=== PATIENT | male | born 1930 | race Caucasian/White ===

== ENCOUNTER 2017-05-04 05:50 | Day surgery (SDC) | payer MEDICARE, OTHER ==
--- NOTE | ~2017-05-04 | EGD ---
EGD REPORT [facility] [address] [id number] NAME: GUTIERREZ BASURTO : [birth year] STATUS : REG [facility]#: [id number] AGE: 86 ADM/REG DATE : 05/04/17 MR#: [id number] REPORT SERV DATE: 05/04/17 DICTATED BY: ESTIVEN BELLAMY DATE: 05/04/17 REPORT STATUS : Draft TRANSCRIBED BY: [employer] DATE: 05/04/17 [facility] Center Patient Name: Gutierrez Basurto Date of : 1930 Attending MD: ESTIVEN BELLAMY MD Procedure Date No Time: 05/04/2017 Procedure: Upper GI endoscopy Indications: Iron deficiency anemia Referring MD: Chang Gibson Medicines: Propofol per Anesthesia Complications: No immediate complications. Procedure: Pre-Anesthesia Assessment: - ASA Grade Assessment: II - A patient with mild systemic disease. After obtaining informed consent, the endoscope was passed under direct vision. Throughout the procedure, the patient's blood pressure, pulse, and oxygen saturations were monitored continuously. The GIF H190 [id number] was introduced through the mouth, and advanced to the second part of duodenum. The upper GI endoscopy was accomplished without difficulty. The patient tolerated the procedure well. Findings: A small hiatus hernia was present. Diffuse moderate inflammation characterized by erosions, erythema and friability was found in the stomach. The examined duodenum was normal. Impression: - Hiatus hernia. - Chronic gastritis. - Normal examined duodenum. Recommendation: - Patient has a contact number available for emergencies. The signs and symptoms of potential delayed complications were discussed with the patient. Return to normal activities tomorrow. Written discharge instructions were provided to the patient. - Regular diet. - Patient has a contact number available for emergencies. The signs and symptoms of potential delayed complications were discussed with the patient. Return to normal activities tomorrow. Written discharge instructions were provided to the patient. - Continue present medications. EGD REPORT [address] [address] NAME: GUTIERREZ BASURTO : [birth year] STATUS : REG [facility]#: [id number] AGE: 86 ADM/REG DATE : 05/04/17 MR#: [id number] REPORT SERV DATE: 05/04/17 DICTATED BY: ESTIVEN BELLAMY. DATE: 05/04/17 REPORT STATUS : Draft TRANSCRIBED BY: [employer] DATE: 05/04/17 Procedure Code(s): --- Professional --- 91177, Esophagogastroduodenoscopy, flexible, transoral; diagnostic, including collection of specimen(s) by brushing or washing, when performed (separate procedure) Diagnosis Code(s): --- Professional --- K44.9, Diaphragmatic hernia without obstruction or gangrene K29.50, Unspecified chronic gastritis without bleeding D50.9, Iron deficiency anemia, unspecified CPT copyright 2013 [employer]. All rights reserved. The codes documented in this report are preliminary and upon poultry buyer review may be revised to meet current compliance requirements. Estiven Bellamy MD ESTIVEN BELLAMY MD 05/04/2017 7:38 AM This report has been signed electronically. Number of Addenda: 0 Note Initiated On: 05/04/2017 7:28 AM Scope Withdrawal Time 0 hours 0 minutes [address] [place] [id number]
--- NOTE | ~2017-05-04 | EGD ---
EGD REPORT [facility] [address] [id number] NAME: GUTIERREZ BASURTO : [birth year] STATUS : REG [facility]#: [id number] AGE: 86 ADM/REG DATE : 05/04/17 MR#: [id number] REPORT SERV DATE: 05/04/17 DICTATED BY: ESTIVEN BELLAMY DATE: 05/04/17 REPORT STATUS : Draft TRANSCRIBED BY: [employer] DATE: 05/04/17 [facility] Patient Name: Gutierrez Basurto Date of : 1930 Attending MD: ESTIVEN BELLAMY MD Procedure Date No Time: 05/04/2017 Procedure: Colonoscopy Indications: Iron deficiency anemia Referring MD: Chang Gibson Medicines: Propofol per Anesthesia Complications: No immediate complications. Procedure: Pre-Anesthesia Assessment: - ASA Grade Assessment: II - A patient with mild systemic disease. - Prior to the procedure, a History and Physical was performed, and patient medications and allergies were reviewed. The patient's tolerance of previous anesthesia was also reviewed. The risks and benefits of the procedure and the sedation options and risks were discussed with the patient. All questions were answered, and informed consent was obtained. Prior Anticoagulants: The patient has taken no previous anticoagulant or antiplatelet agents. ASA Grade Assessment: III - A patient with severe systemic disease. After reviewing the risks and benefits, the patient was deemed in satisfactory condition to undergo the procedure. After I obtained informed consent, the scope was passed under direct vision. Throughout the procedure, the patient's blood pressure, pulse, and oxygen saturations were monitored continuously. The PCF H190L [id number] was introduced through the anus and advanced to the cecum, identified by appendiceal orifice and ileocecal valve. The colonoscopy was performed without difficulty. The patient tolerated the procedure well. The quality of the bowel preparation was good. The ileocecal valve, appendiceal orifice, terminal ileum and rectum were photographed. The entire colon was examined. The colonoscopy was performed without difficulty. The patient tolerated the procedure well. The quality of the bowel preparation was good. Findings: A few medium-mouthed diverticula were found in the sigmoid colon and in the descending colon. A sessile polyp was found in the rectum. The polyp was 5 mm in size. The EGD REPORT [address] [address] NAME: GUTIERREZ BASURTO : 30 STATUS : REG [facility] PAT#: [id number] AGE: 86 ADM/REG DATE : 05/04/17 MR#: [id number] REPORT SERV DATE: 05/04/17 DICTATED BY: ESTIVEN BELLAMY DATE: 05/04/17 REPORT STATUS : Draft TRANSCRIBED BY: [employer] DATE: 05/04/17 polyp was removed with a hot snare. Resection and retrieval were complete. Internal hemorrhoids were found during retroflexion and were Grade I (internal hemorrhoids that do not prolapse). The rest of the colon was normal. Impression: - Diverticulosis in the sigmoid colon and in the descending colon. - One 5 mm polyp in the rectum. Resected and retrieved. - Internal hemorrhoids. Recommendation: - Patient has a contact number available for emergencies. The signs and symptoms of potential delayed complications were discussed with the patient. Return to normal activities tomorrow. Written discharge instructions were provided to the patient. - Regular diet. - Patient has a contact number available for emergencies. The signs and symptoms of potential delayed complications were discussed with the patient. Return to normal activities tomorrow. Written discharge instructions were provided to the patient. - Continue present medications. Procedure Code(s): --- Professional --- 08776, Colonoscopy, flexible, proximal to splenic flexure; with removal of tumor(s), polyp(s), or other lesion(s) by snare technique Diagnosis Code(s): --- Professional --- K64.0, First degree hemorrhoids K57.30, Diverticulosis of large intestine without perforation or abscess without bleeding K62.1, Rectal polyp D50.9, Iron deficiency anemia, unspecified CPT copyright 2013 [employer]. All rights reserved. The codes documented in this report are preliminary and upon fruit dumper review may be revised to meet current compliance requirements. Estiven Bellamy MD ESTIVEN BELLAMY MD 05/04/2017 7:57 AM This report has been signed electronically. EGD REPORT [facility] [address] [id number] NAME: GUTIERREZ BASURTO : 30 STATUS : REG [facility] PAT#: [id number] AGE: 86 ADM/REG DATE : 05/04/17 MR#: [id number] REPORT SERV DATE: 05/04/17 DICTATED BY: ESTIVEN BELLAMY. DATE: 05/04/17 REPORT STATUS : Draft TRANSCRIBED BY: [employer] DATE: 05/04/17 Number of Addenda: 0 Note Initiated On: 05/04/2017 7:32 AM Scope Withdrawal Time 0 hours 10 minutes 13 seconds [address] [id number]
--- NOTE | ~2017-05-04 | EGD ---
EGD REPORT [facility] [address] [id number] NAME: GUTIERREZ BASURTO : [birth year] STATUS : REG [facility]#: [id number] AGE: 86 ADM/REG DATE : 05/04/17 MR#: [id number] REPORT SERV DATE: 05/04/17 DICTATED BY: ESTIVEN BELLAMY DATE: 05/04/17 REPORT STATUS : Draft TRANSCRIBED BY: [employer] DATE: 05/04/17 Endoscopy Center Patient Name: Gutierrez Basurto Date of : 1930 Attending MD: ESTIVEN BELLAMY MD Procedure Date No Time: 05/04/2017 Procedure: Upper GI endoscopy Indications: Iron deficiency anemia Referring MD: Chang Gibson Medicines: Propofol per Anesthesia Complications: No immediate complications. Procedure: Pre-Anesthesia Assessment: - ASA Grade Assessment: II - A patient with mild systemic disease. - ASA Grade Assessment: [ASA Grade]. After obtaining informed consent, the endoscope was passed under direct vision. Throughout the procedure, the patient's blood pressure, pulse, and oxygen saturations were monitored continuously. The GIF H190 [id number] was introduced through the mouth, and advanced to the second part of duodenum. The upper GI endoscopy was accomplished without difficulty. The patient tolerated the procedure well. Findings: A small hiatus hernia was present. Diffuse moderate inflammation characterized by erosions, erythema and friability was found in the stomach. The examined duodenum was normal. Impression: - Hiatus hernia. - Chronic gastritis. - Normal examined duodenum. Recommendation: - Patient has a contact number available for emergencies. The signs and symptoms of potential delayed complications were discussed with the patient. Return to normal activities tomorrow. Written discharge instructions were provided to the patient. - Regular diet. - Patient has a contact number available for emergencies. The signs and symptoms of potential delayed complications were discussed with the patient. Return to normal activities tomorrow. Written discharge instructions were provided to the patient. EGD REPORT [facility] [address] [place] [address]. [address] NAME: GUTIERREZ BASURTO : [birth year] STATUS : REG [facility] PAT#: [id number] AGE: 86 ADM/REG DATE : 05/04/17 MR#: [id number] REPORT SERV DATE: 05/04/17 DICTATED BY: ESTIVEN BELLAMY. DATE: 05/04/17 REPORT STATUS : Draft TRANSCRIBED BY: [employer] DATE: 05/04/17 - Continue present medications. Procedure Code(s): --- Professional --- 21088, Esophagogastroduodenoscopy, flexible, transoral; diagnostic, including collection of specimen(s) by brushing or washing, when performed (separate procedure) Diagnosis Code(s): --- Professional --- K44.9, Diaphragmatic hernia without obstruction or gangrene K29.50, Unspecified chronic gastritis without bleeding D50.9, Iron deficiency anemia, unspecified CPT copyright 2013 [employer]. All rights reserved. The codes documented in this report are preliminary and upon bar tender review may be revised to meet current compliance requirements. Estiven Bellamy MD ESTIVEN BELLAMY MD 05/04/2017 7:38 AM This report has been signed electronically. Number of Addenda: 0 Note Initiated On: 05/04/2017 7:28 AM Scope Withdrawal Time 0 hours 0 minutes [address] [place] [phone]
--- NOTE | ~2017-05-04 | EGD ---
EGD REPORT [facility] [address] [id number] NAME: GUTIERREZ BASURTO : 30 STATUS : REG [facility]#: [id number] AGE: 86 ADM/REG DATE : 05/04/17 MR#: [id number] REPORT SERV DATE: 05/04/17 DICTATED BY: ESTIVEN BELLAMY DATE: 05/04/17 REPORT STATUS : Draft TRANSCRIBED BY: [employer] DATE: 05/04/17 Endoscopy Center Patient Name: Gutierrez Basurto Date of : 1930 Attending MD: ESTIVEN BELLAMY MD Procedure Date No Time: 05/04/2017 Procedure: Colonoscopy Indications: Iron deficiency anemia Referring MD: Chang Gibson Medicines: Propofol per Anesthesia Complications: No immediate complications. Procedure: Pre-Anesthesia Assessment: - ASA Grade Assessment: II - A patient with mild systemic disease. - Prior to the procedure, a History and Physical was performed, and patient medications and allergies were reviewed. The patient's tolerance of previous anesthesia was also reviewed. The risks and benefits of the procedure and the sedation options and risks were discussed with the patient. All questions were answered, and informed consent was obtained. Prior Anticoagulants: The patient has taken no previous anticoagulant or antiplatelet agents. ASA Grade Assessment: III - A patient with severe systemic disease. After reviewing the risks and benefits, the patient was deemed in satisfactory condition to undergo the procedure. After I obtained informed consent, the scope was passed under direct vision. Throughout the procedure, the patient's blood pressure, pulse, and oxygen saturations were monitored continuously. The PCF H190L [id number] was introduced through the anus and advanced to the cecum, identified by appendiceal orifice and ileocecal valve. The colonoscopy was performed without difficulty. The patient tolerated the procedure well. The quality of the bowel preparation was good. The ileocecal valve, appendiceal orifice, terminal ileum and rectum were photographed. The entire colon was examined. The colonoscopy was performed without difficulty. The patient tolerated the procedure well. The quality of the bowel preparation was good. Findings: A few medium-mouthed diverticula were found in the sigmoid colon and in the descending colon. A sessile polyp was found in the rectum. The polyp was 5 mm in size. The EGD REPORT [address] [address] NAME: GUTIERREZ BASURTO : 30 STATUS : REG [facility] PAT#: [id number] AGE: 86 ADM/REG DATE : 05/04/17 MR#: [id number] REPORT SERV DATE: 05/04/17 DICTATED BY: ESTIVEN BELLAMY DATE: 05/04/17 REPORT STATUS : Draft TRANSCRIBED BY: [employer] DATE: 05/04/17 polyp was removed with a hot snare. Resection and retrieval were complete. Internal hemorrhoids were found during retroflexion and were Grade I (internal hemorrhoids that do not prolapse). The rest of the colon was normal. Impression: - Diverticulosis in the sigmoid colon and in the descending colon. - One 5 mm polyp in the rectum. Resected and retrieved. - Internal hemorrhoids. Recommendation: - Patient has a contact number available for emergencies. The signs and symptoms of potential delayed complications were discussed with the patient. Return to normal activities tomorrow. Written discharge instructions were provided to the patient. - Regular diet. - Patient has a contact number available for emergencies. The signs and symptoms of potential delayed complications were discussed with the patient. Return to normal activities tomorrow. Written discharge instructions were provided to the patient. - Continue present medications. Procedure Code(s): --- Professional --- 71540, Colonoscopy, flexible, proximal to splenic flexure; with removal of tumor(s), polyp(s), or other lesion(s) by snare technique Diagnosis Code(s): --- Professional --- K64.0, First degree hemorrhoids K57.30, Diverticulosis of large intestine without perforation or abscess without bleeding K62.1, Rectal polyp D50.9, Iron deficiency anemia, unspecified CPT copyright 2013 [employer]. All rights reserved. The codes documented in this report are preliminary and upon neon electrician review may be revised to meet current compliance requirements. Estiven Bellamy MD ESTIVEN BELLAMY MD 05/04/2017 7:57 AM This report has been signed electronically. EGD REPORT [facility] [address] [id number] NAME: GUTIERREZ BASURTO : [birth year] STATUS : REG [facility] PAT#: [id number] AGE: 86 ADM/REG DATE : 05/04/17 MR#: [id number] REPORT SERV DATE: 05/04/17 DICTATED BY: ESTIVEN BELLAMY. DATE: 05/04/17 REPORT STATUS : Draft TRANSCRIBED BY: [employer] DATE: 05/04/17 Number of Addenda: 0 Note Initiated On: 05/04/2017 7:32 AM Scope Withdrawal Time 0 hours 10 minutes 13 seconds [address] [id number]
[~2017-05-04 05:50] MED LIST: ASAB PO; FERROUS SULF325 M1 PO; HCTZ25B PO; LOTE20 PO; MULTIPLE VIT PO; PROAIR HFA INH
== END 2017-05-04 23:59 | disposition home or self-care (01) ==
LOC: DMU 05:50
PROVIDERS: Internal Medicine Gastroenterology
PROC: 0DJ08ZZ Inspection of Upper Intestinal Tract, Via Natural or Artificial Opening Endoscopic (ICD-10-PCS; principal; 2017-05-04 07:00)
PROC: 0DBL8ZX Excision of Transverse Colon, Via Natural or Artificial Opening Endoscopic, Diagnostic (ICD-10-PCS; 2017-05-04 07:00)
DX: D12.8 Benign neoplasm of rectum (principal); K64.0 First degree hemorrhoids; K57.30 Diverticulosis of large intestine without perforation or abscess without bleeding; K44.9 Diaphragmatic hernia without obstruction or gangrene; J44.9 Chronic obstructive pulmonary disease, unspecified; I10 Essential (primary) hypertension; Z98.890 Other specified postprocedural states
CPT/HCPCS: 88305